=== PATIENT | male | born 1960 | race Hispanic/Latino ===

== ENCOUNTER 2023-09-21 15:39 | Inpatient (IN) | payer OTHER ==
--- OUTSIDE RECORDS SUMMARY | 2023-09-21 15:43 | XMS REPORT | Continuity of Care Document ---
:1960 Author Organization [facility] t Address [address] [facility] [address] [place] [address] Care Team Providers Name Role Phone PCP, PATIENT DOES NOT HAVE A Primary Care Physician Unavaila Hortencia Hoffman Attending Clinician HORTENCIA MAHONEY Attending Clinician Unavailable HORTENCIA MAHONEY Admitting Clinician Unavailable Problems This patient has no known problems. Allergies, Adverse Reactions, Alerts Allergy Allergy Status Severity Reaction(s) Onset Inactive Treating Comm ents Source Name Type Date Date Clinician NO KNOWN Drug Active Univers ALLERGIE Class ity of [facility] Social History Social Habit Start Date Stop Date Quantity Comments Source Gender identity [facility] Sexual orientation [facility] Sex Assigned At [birth year] [facility] 00:00:00 00:00:00 [facility] Branch Smoking Status Start Date Stop Date Source Tobacco smoking consumption [facility] Branch Medications Ordered Filled Start Stop Current Ordering Indication Dosage Frequency Signature Comments Components Source Medication Medication Date Date Medication? Clinician (SIG) Name Name iopamidol 2022- No [id number] 70mL 70 mL, Univers (ISOVUE 05-28 Intravenou ity o f 370-500 mL) 03:00: 03:00 s, ONCE, 1 [place] injection 00 :00 dose, On Medica l 70 mL [facility] Branch 05/27/23 at 2200, Routine lidocaine 2022- No 5mL 5 mL, Univer s (XYLOCAINE) 05-28 Urethral, it y of 2 % jelly 03:00: 02:07 ONCE, 1 Zehra salazar URO-JET 5 00 :00 dose, On Medica l mL Mon Branch 05/27/23 at 2200, Routine Vital Signs Vital Name Observation Time Observation Value Comments Source Systolic blood 2023-05-28 03:00:00 155 mm[Hg] Univer sity of [facility] Diastolic blood 2023-05-28 03:00:00 63 mm[Hg] [facility] Heart rate 2023-05-28 03:00:00 57 /min [facility] Respiratory rate 2023-05-28 03:00:00 16 /min [facility] Oxygen saturation in 2023-05-28 03:00:00 96 /min [facility] Arterial blood by [facility] Pulse oximetry [place] Body temperature 2023-05-28 00:01:00 36.72 [facility] Body height 2023-05-28 00:01:00 170.2 cm [facility] Body weight 2023-05-28 00:01:00 68.04 kg [facility] BMI 2023-05-28 00:01:00 23.49 kg/m2 [facility] Procedures Procedure Date / Time Performed Performing Clinician Sour e URINALYSIS 2023-05-28 00:50:00 Hortencia Mahoney [facility] COMP. METABOLIC PANEL 2023-05-28 00:47:00 Hortencia Mahoney [facility] ([id number]) [facility] CBC WITH DIFF 2023-05-28 00:47:00 Hortencia Mahoney [facility] NOTICE OF PRIVACY 2023-05-28 00:03:17 Doctor Unassigned, No [facility] PRACTICES Name [facility] CONSENT/REFUSAL FOR 2023-05-28 00:02:05 Doctor Unassigned, No [facility] DIAGNOSIS AND Name Medical Branch TREATMENT Encounters Start End Encounter Admission Attending Care Care Encounter Source Date/Time Date/Time Type Type Clinicians Facility Department ID 2023-05-27 2023-05-27 Emergency CALIXTO Mahoney [id number] [facility] 19:13:00 22:40:00 Hortencia CHACON [id number] i [facility] [id number] [facility] [id number] [place] [id number] Branch 2023-05-27 2023-05-27 Emergency X [facility] ERT [id number] Univers 19:13:00 22:40:00 HORTENCIA fly [facility] Results Test Description Test Time Test Comments Results Result Comments Source COMP. METABOLIC PANEL (09366) 2023-05-28 01:30:52 Test Item Value Reference Range Interpretation Comme nts NA (test code = 3792356495) 134 mmol/L 135-145 L K (test code = 8857574510) 3.1 mmol/L 3.5-5.0 L CL (test code = 2481999699) 99 mmol/L 98-108 CO2 TOTAL (test code = 1234327914) 23 mmol/L 23-31 AGAP (test code = 5001969160) 12 2-16 BUN (test code = 6776461008) 13 mg/dL 7-23 GLUCOSE (test code = 6729931628) 98 mg/dL 70-110 CREATININE (test code = 1.30 mg/dL 0.60-1.25 H 5666860153) TOTAL BILI (test code = 1.4 mg/dL 0.1-1.1 H 6629740893) CALCIUM (test code = 4413931597) 8.6 mg/dL 8.6-10.6 T PROTEIN (test code = 5489806450) 6.9 g/dL 6.3-8.2 ALBUMIN (test code = 0170780767) 4.0 g/dL 3.5-5.0 ALK PHOS (test code = 3457535106) 95 U/L 34-122 ALTv (test code = 1742-6) 17 U/L 5-50 AST(SGOT) (test code = 3916718199) 27 U/L 13-40 eGFR (test code = 1999786669) 55.8 mL/min/1.73m2 ANGY (test code = ANGY) Association of Glomerular Filtration Rate (GFR) and Staging of Kidney Disease* + +-------- + ------+| GFR (mL/min/1.73 m2) ?| With Kidney Damage ?| ?Without Kidney Damage+ +-- + +| ?>90 ?| ?Stage one ?| ? Normal ?+ +------- + -------+| ?60-89 ?| ?Stage two ?| ? Decreased GFR ? + +-------- + ------+| ?30-59 ?| ?Stage three ?| ? Stage three ? + +-------- + ------+| ?15-29 ?| ?Stage four ? | ? Stage four ?+ +------- + -------+| ?<15 (or dialysis) ? ?| ?Stage five ? | ? Stage five ?+ +------- + -------+ *Each stage assumes the associated GFR level has been in effect for at least three months. ?Stages 1 to 5, with or without kidney disease, indicate chronic kidney disease. Notes: Determination of stages one and two (with eGFR >59mL/min/1.73 m2) requires estimation of kidney damage for at least three months as defined by structural or functional abnormalities of the kidney, manifested by either:Pathological abnormalities or Markers of kidney damage (including abnormalities in the composition of the blood or urine or abnormalities in imaging tests). Lab Interpretation (test code = Abnormal 00634-0) [facility] WITH [id number] 01:15:11 Test Item Value Reference Range Interpretation Comments WBC (test code = 10.26 See_Comment [Automated 6070-2) message] The sy stem which generated this result transmitted reference range : 4.20 - 10.70 10*3/?L. The reference range was not used to interpret this result as normal/abnormal . RBC (test code = 4.55 See_Comment [Automated 724-8) message] The sy stem which generated this result transmitted reference range : 4.26 - 5.52 10*6/?L. The reference range was not used to interpret this result as normal/abnormal . HGB (test code = 14.4 g/dL 12.2-16.4 718-7) HCT (test code = 41.2 % 38.4-49.3 4544-3) MCV (test code = 90.5 fL 81.7-95.6 787-2) MCH (test code = 31.6 pg 26.1-32.7 785-6) MCHC (test code = 35.0 g/dL 31.2-35.0 786-4) RDW-SD (test code = 43.6 fL 38.5-51.6 82587-9) RDW-CV (test code = 13.2 % 12.1-15.4 788-0) PLT (test code = 239 See_Comment [Automated 777-3) message] The sy stem which generated this result transmitted reference range : 150 - 328 10*3/ ?L. The reference r isacc was not used to interpret this result as normal/abnormal . MPV (test code = 10.3 fL 9.8-13.0 37850-6) NRBC/100 WBC (test 0.0 See_Comment [Automat ed code = 2108202146) message] The system which generated this result transmitted reference range : 0.0 - 10.0 /100 WBCs. The refer ence range was not u sed to interpret th is result as normal/abnormal . NRBC x10^3 (test code See_Comment [Auto mated = 1005576858) message] The s ystem which generated this result transmitted reference range : 10*3/?L. The reference range was not used to interpret this result as normal/abnormal . GRAN MAT (NEUT) % 68.3 % (test code = 770-8) IMM GRAN % (test code 0.20 % = 7354874559) LYMPH % (test code = 20.6 % 736-9) MONO % (test code = 9.2 % 5905-5) EOS % (test code = 1.3 % 713-8) BASO % (test code = 0.4 % 706-2) GRAN MAT x10^3(ANC) 7.02 10*3/uL 1.99-6.95 H (test code = 6228013437) IMM GRAN x10^3 (test 0.00-0.06 code = 9523352685) LYMPH x10^3 (test code 2.11 10*3/uL 1.09-3.23 = 731-0) MONO x10^3 (test code 0.94 10*3/uL 0.36-1.02 = 742-7) EOS x10^3 (test code = 0.13 10*3/uL 0.06-0.53 711-2) BASO x10^3 (test code 0.04 10*3/uL 0.01-0.09 = 704-7) Lab Interpretation Abnormal (test code = 79663-4) [facility] Notes Date/Time Note Provider Source 2023-05-27 22:37:52 0366-85-42Z22:37:52Formatting of Leticia jaimes [facility] this note might be different from RN the original.Pt given printed and verbal discharge instructions regarding urinary retention, mahoney care, encouraged hydration.0 Prescriptions provided.Discussed ibuprofen and to take with food to avoid GI distress.Pt verbalized understanding of instructions, pt awake alert oriented, resp reg unlabored, skin w/d, color appropriate for race, moves all ext well,pt encouraged to follow up with pcp and urology.Advised to seek medical attention for new/prolonged/worsening of symptoms,Symptoms improved.No adverse reaction to meds given in ER noted upon discharge.PIV d'cd, dressing to site, catheter in tact.Awake, alert oriented, resp reg unlabored, skin w/d, pt leaving amb with steady gait, in no apparent distress. 12023-1Ircgbbzhh department LjyyPN4810-92-20U76:38:57[facility] department NoteTXT1.2.840.860405.1.13.104.2. 7.2.107863|[id number] for patient mxyq61502-9RhoyHL277300833Rhhibk M Herrera RN[address] EyoaFmimiwgspUbrievyplNOEB5166005 304HRSLVVDIXLIBELPXAXAOTD4330-04- 31T22:38:571.2.840.354322.1.72.3. 15|1.2.840.456408.1.13.104.2.7.2. [id number] 2023-05-27 22:35:28 8440-27-14H79:35:28Formatting of [facility] this note might be different from the original.Patient given leg bag, and instructed how to use. 85786-2Ididigcxk department TehrLA6695-39-90H91:36:01[facility] department NoteTXT1.2.840.464596.1.13.104.2. 7.2.602542|[id number] for patient vhfb95693-1EfweYEFFYWFYEN[address]TXTX[address]77 462GGBLHPYYKBKYGJDLCIDNOH0195-65- 31T22:36:011.2.840.386806.1.72.3. 15|1.2.840.749478.1.13.104.2.7.2. [id number] 2023-05-27 19:41:48 6441-02-37F96:41:48Formatting of Mery Griffin [facility] this note might be different from RN the original.Bladder scanner result: >999 mL. Mahoney placement in progress 12986-5Qwslwselb department CxqhDF2200-60-58Y84:44:02[facility] department NoteTXT1.2.840.012677.1.13.104.2. 7.2.690298|[id number] for patient kodd99607-4MhunKW138186142Csrkdl R Shehadeh RN[address] HfabBnlhezcxsDukuzquwtJIZV3353143 879LHXSYFJAVXWDWBGYSZHBZH8511-39- 31T19:44:021.2.840.637403.1.72.3. 15|1.2.840.333381.1.13.104.2.7.2. [id number] 2023-05-27 19:40:00 8590-80-23K09:40:00Formatting of [facility] this note might be different from the original.Bladder scan >999mL, provider at bedside 30382-6Lrsfkuhca department BqejJF3181-49-17W63:02:24[facility] department NoteTXT1.2.840.207667.1.13.104.2. 7.2.224725|[id number] for patient canf95752-3LmuxYEJPGHOTUK50 [address]TXTX[address] 420OZARGYHMBGENDRYONQYBRG5202-83- 31T20:02:241.2.840.147705.1.72.3. 15|1.2.840.716464.1.13.104.2.7.2. [id number] 2023-05-27 19:01:00 8529-83-12V33:01:00Formatting of [facility] this note might be different from the original.Patient's daughter states: "Since 3 days now he's been having difficulty going to the restroom. 1st day he couldn't pee at all, and he said he feels pain when urinating. He also have diarrhea today and had watery stools 20x." 93940-0Mbqsiocnx department Triage ivgbDJ1923-21-13X81:16:22[facility] department Triage noteTXT1.2.840.990525.1.13.104.2. 7.2.601113|[id number] for patient uzhg36022-2Fwgtksitm[address]TX[address] 830POKNEUUKFNRSKAVDNGMHGZ0697-83- 31T19:16:221.2.840.200501.1.72.3. 15|1.2.840.142411.1.13.104.2.7.2. [id number]
[2023-09-21 16:46] LABS: Absolute Lymphocytes (CBC) 0.6 K/uL (0.7-4.9); Hematocrit 41.2 % (39.6-49.0); Lymphocytes % 5.5 % (15.3-44.8); MCV 90.4 fL (80-100); MPV 8.3 fL (7.6-11.3); Platelets 212 thou/uL (152-406); RBC Red Blood Cell Count 4.55 M/uL (4.33-5.43)
--- NOTE | 2023-09-21 16:49 | RAD REPORT ---
EXAM DESCRIPTION: RAD - Chest Single View - 09/21/2023 4:40 pm CLINICAL HISTORY: MALAISE Chest pain. COMPARISON: No comparisons FINDINGS: Portable technique limits examination quality. The lungs are grossly clear. The heart is normal in size. No displaced fractures. IMPRESSION: No acute intrathoracic process suspected.
[2023-09-21] MEDS ORDERED: ACETAMINOPHEN 500 MG TAB ONE (16:56)
[2023-09-21] MEDS ORDERED: NA CHLORIDE 0.9% 1,000 ML ONE (16:56)
[2023-09-21 17:17] LABS: Urine Bacteria <20 /HPF (<20); Urine Bilirubin NEGATIVE (Negative); Urine Blood 2+ (Negative); Urine Clarity Extremely Turbid (Clear); Urine Color Orange (Yellow); Urine Crystals Unidentified Few /HPF (None Seen); Urine Glucose NEGATIVE (Negative); Urine Protein 1+ (Negative); Urine RBC >50 /HPF (None Seen); Urine Urobilinogen Normal (Normal); Urine WBC Clump Many /HPF (None Seen); Urine pH 5.5 (5.0-7.0)
[2023-09-21 17:21] LABS: Protime INR 1.2
[2023-09-21 17:23] LABS: Albumin 3.2 g/dL (3.4-5.0); Potassium 3.9 mEq/L (3.5-5.1); Protein, Total 7.2 g/dL (6.4-8.2)
[2023-09-21 17:39] LABS: SARS-COV-2 RT PCR NEGATIVE (NEGATIVE)
--- NOTE | 2023-09-21 18:12 | RAD REPORT ---
EXAM DESCRIPTION: CTAbdomen Pelvis W Contrast - 09/21/2023 6:06 pm CLINICAL HISTORY: Abdominal pain. ABD PAIN COMPARISON: No comparisons TECHNIQUE: Biphasic CT imaging of the abdomen and pelvis was performed with 100 ml non-ionic IV cont rast. All CT scans are performed using dose optimization technique as appropriate and may include automated exposure control or mA/KV adjustment according to patient size. FINDINGS: Mild linear atelectasis in both lung bases posteriorly. The liver, spleen, pancreas, adrenal glands are within normal limits. There is marked bladder distent ion and mild bilateral hydronephrosis and hydroureter. The prostate gland is enlarged. No bowel obstruction, free air, free fluid or abscess. The appendix is normal. No evidence of signi ficant lymphadenopathy. No suspicious bony findings. IMPRESSION: Prominent distention urinary bladder with mild bilateral hydronephrosis likely indicatin g bladder outlet obstruction, presumably related to significantly enlarged prostate gland.
[2023-09-21 18:20] LABS: Anisocytosis 1+; Blood Morphology Comment NOTED (NOT SEEN); Platelet Estimate ADEQ; Poikilocytosis 1+; White Blood Cell Scan OK (OK)
--- NOTE | 2023-09-21 19:07 | ER ---
Nurse's Notes [facility] Name: Salvador Yost Age: 63 yrs Sex: Male : 1960 Arrival Date: 09/21/2023 Time: 15:39 Bed 8 Private MD: Diagnosis: Urinary retention resolved, UTI, EMELY, hyponatremia Presentation: 09/21 15:51 Chief complaint: Patient's son or daughter states: chun removed on Saturday, Saturday ko1 burning when he peed, then black diarrhea, then fever and chills. Poor appetitie. Nausea also. Coronavirus screen: At this time, the client does not indicate any symptoms associated with coronavirus-19. Ebola Screen: No symptoms or risks identified at this time. Initial Sepsis Screen: Does the patient meet any 2 criteria? No. Patient's initial sepsis screen is negative. Does the patient have a suspected source of infection? No. Patient's initial sepsis screen is negative. Initial Sepsis Screen: Does the patient meet any 2 criteria? HR > 90 bpm. Does the patient have a suspected source of infection? No. Patient's initial sepsis screen is negative. Risk Assessment: Do you want to hurt yourself or someone else? Patient reports no desire to harm self or others. Onset of symptoms was September 21, 2023. 15:51 Method Of Arrival: Ambulatory ko1 15:51 Acuity: RAJ 2 ko1 Triage Assessment: 15:51 General: Appears ill, Behavior is calm, cooperative, appropriate for age. Pain: ko1 Complains of pain in left lower quadrant. Historical: - Allergies: 15:56 No Known Allergies; ko1 - Home Meds: 15:56 Unable to obtain [Active]; ko1 - PMHx: 15:56 BPH; ko1 - Immunization history:: Adult Immunizations up to date. - Social history:: Smoking status: Patient reports the use of cigarette tobacco products. Screenin:57 [facility] ED Fall Risk Assessment (Adult) History of falling in the last 3 months, kc6 including since admission No falls in past 3 months (0 pts) Confusion or Disorientation No (0 pts) Intoxicated or Sedated No (0 pts) Impaired Gait No (0 pts) Mobility Assist Device Used No (0 pt) Altered Elimination Yes (1 pt) Score/Fall Risk Level 0 - 2 = Low Risk. Abuse screen: Denies threats or abuse. Denies injuries from another. Nutritional screening: No deficits noted. Tuberculosis screening: No symptoms or risk factors identified. Assessment: 16:58 General: Appears in no apparent distress. comfortable, Behavior is calm, cooperative, kc6 appropriate for age. Pain: Complains of pain in suprapubic area. Neuro: Level of Consciousness is awake, alert, obeys commands, Oriented to person, place, time, situation, Appropriate for age. Cardiovascular: Capillary refill < 3 seconds. Respiratory: Airway is patent Trachea midline Respiratory effort is even, unlabored, Respiratory pattern is regular, symmetrical. GI: Abdomen is flat, non-distended, Bowel sounds present X 4 quads. Abd is soft X 4 quads Abdomen is tender to palpation in suprapubic area Reports bloody stool, Patient currently denies diarrhea, nausea, vomiting, Parent/caregiver reports the patient having anorexia. : Urine is blood tinged, Reports burning with urination, inability to void. EENT: No signs and/or symptoms were reported regarding the EENT system. Derm: No signs and/or symptoms reported regarding the dermatologic system. Skin is intact, is healthy with good turgor, Skin is pink, warm \T\ dry. Musculoskeletal: No signs and/or symptoms reported regarding the musculoskeletal system. Circulation, motion, and sensation intact. Capillary refill < 3 seconds, Range of motion: intact in all extremities. 17:58 Reassessment: Patient appears in no apparent distress at this time. No changes from kc6 previously documented assessment. Patient and/or family updated on plan of care and expected duration. Pain level reassessed. Patient is alert, oriented x 3, equal unlabored respirations, skin warm/dry/pink. 18:58 Reassessment: Patient appears in no apparent distress at this time. No changes from kc6 previously documented assessment. Patient and/or family updated on plan of care and expected duration. Pain level reassessed. Patient is alert, oriented x 3, equal unlabored respirations, skin warm/dry/pink. 19:15 Reassessment: Patient appears in no apparent distress at this time. Patient and/or jb4 family updated on plan of care and expected duration. Pain level reassessed. Patient is alert, oriented x 3, equal unlabored respirations, skin warm/dry/pink. 20:24 Reassessment: Patient appears in no apparent distress at this time. Patient and/or jb4 family updated on plan of care and expected duration. Pain level reassessed. Patient is alert, oriented x 3, equal unlabored respirations, skin warm/dry/pink. Vital Signs: 15:51 BP 156 / 82; Pulse 111; Resp 16; Temp 100.9; Pulse Ox 100% ; Weight 65.77 kg; ko1 16:59 BP 147 / 70; Pulse 97; Resp 14 S; Pulse Ox 100% on R/A; kc6 19:03 Resp 19 S; Temp 98.4(TE); Pulse Ox 100% on R/A; kc6 19:25 BP 163 / 89; Pulse 73; Resp 16; Pulse Ox 98% on R/A; km8 20:24 BP 122 / 68; Pulse 70; Resp 16; Pulse Ox 99% on R/A; jb4 20:30 BP 131 / 61; Pulse 73; Resp 16; Pulse Ox 100% on R/A; km8 ED Course: 15:44 Patient arrived in ED. mr 15:44 Danielle Haro MD is Attending Physician. sp3 15:51 Arm band placed on right wrist. Patient placed in an exam room, on a stretcher, on ko1 registered nurse cardiac, on pulse oximetry, Patient notified of wait time. 15:55 Triage completed. ko1 16:42 Chest Single View XRAY In Process Unspecified. EDMS 16:55 Veronica Willis RN is Primary Nurse. kc6 16:57 Patient has correct armband on for positive identification. Bed in low position. Call kc6 light in reach. Side rails up X2. Adult w/ patient. Client placed on continuous cardiac and pulse oximetry monitoring. NIBP monitoring applied. classroom monitor on. 16:57 Inserted saline lock: 20 gauge in right antecubital area, using aseptic technique. kc6 Blood collected. Patient maintains SpO2 saturation greater than 95% on room air. 17:10 Inserted saline lock: 20 gauge in left antecubital area, using aseptic technique. Blood kc6 collected. 18:08 CT Abd/Pelvis - IV Contrast Only In Process Unspecified. EDMS 18:30 Coud inserted, using sterile technique, 18 Fr. Returned bloody urine. To gravity kc6 drainage. Clamped. Patient tolerated well. 19:00 Report given to RAFAELA Bethea \T\ RAFAELA Oliver. kc6 19:07 Prem Norman MD is Hospitalizing Provider. sp3 20:51 Provided Education on: admission process. km8 20:51 Patient admitted, IV remains in place. km8 20:51 No provider procedures requiring assistance completed. km8 Administered Medications: 16:55 Drug: Acetaminophen PO 1000 mg PO once Route: PO; kc6 19:04 Follow up: Response: No adverse reaction; Temperature is decreased kc6 16:55 Drug: NS 0.9% IV 1000 ml IV at 1 bolus Per protocol; 1000 mL bolus Route: IV; Rate: 1 kc6 bolus; Site: right antecubital; 19:04 Follow up: Response: No adverse reaction; IV Status: Completed infusion; IV Intake: kc6 1000ml 19:44 Drug: levofloxacin IVPB 500 mg 100 ml IVPB once over 60 mins Volume: 100 ml; Route: jb4 IVPB; Infused Over: 60 mins; Site: right antecubital; Medication: 20:51 VIS not applicable for this client. km8 Intake: 19:04 IV: 1000ml; Total: 1000ml. kc6 Output: 20:51 Urine: 500ml (Chun); Total: 500ml. km8 Outcome: 19:07 Decision to Hospitalize by Provider. sp3 20:51 Admitted to Med/surg accompanied by tech, via wheelchair, room 229, with chart, Report jb4 called to RAFAELA Pan 20:51 Condition: stable 20:51 Discharge instructions given to patient, family, Instructed on the need for admit, Demonstrated understanding of instructions, 20:52 Patient left the ED. jb4 Signatures: Dispatcher [employer] EDTN Silvia Sneed, Reg Reg mr KilgoresonSurya, RN RN jb4 Danielle Haro MD MD sp3 Veronica Willis RN RN kc6 Monique Narayan RN RN koNeema Meeks RN RN km8
--- NOTE | 2023-09-21 19:08 | EDPHYS ---
Physician Documentation [facility] Name: Salvador Yost Age: 63 yrs Sex: Male : 1960 Arrival Date: 09/21/2023 Time: 15:39 Bed 8 Private MD: ED Physician Danielle Haro HPI: 09/21 16:57 This 63 yrs old Male presents to ER via Ambulatory with complaints of Urinary sp3 Problem, Fever, Black/Tarry Stools. 16:57 63-year-old male with history of BPH with indwelling Macedo since May recently sp3 discharged few days ago in [place] by his urologist presents to the ED with dysuria, urinary frequency, mild fever. Also incidentally patient has had 1 episode of black stools and is having mild lower abdominal diffuse pain. Patient denies vomiting, nausea, bleeding anywhere else, URI symptoms, cough, shortness of breath, chest pain, back pain, rash, known sick contacts, travel history, or any other signs or symptoms on ROS at this time. Patient is able to void without difficulty. Patient denies any OTC medications including Pepto-Bismol. He did take Azo as recommended by his urologist.. Historical: - Allergies: 15:56 No Known Allergies; ko1 - Home Meds: 15:56 Unable to obtain [Active]; ko1 - PMHx: 15:56 BPH; ko1 - Immunization history:: Adult Immunizations up to date. - Social history:: Smoking status: Patient reports the use of cigarette tobacco products. ROS: 16:59 Eyes: Negative for injury, pain, redness, and discharge, ENT: Negative for injury, sp3 pain, and discharge, Neck: Negative for injury, pain, and swelling, Cardiovascular: Negative for chest pain, palpitations, and edema, Respiratory: Negative for shortness of breath, cough, wheezing, and pleuritic chest pain, Back: Negative for injury and pain, MS/Extremity: Negative for injury and deformity, Skin: Negative for injury, rash, and discoloration, Neuro: Negative for headache, weakness, numbness, tingling, and seizure, Psych: Negative for depression, anxiety, suicide ideation, homicidal ideation, and hallucinations, Allergy/Immunology: Negative for hives, rash, and allergies, Endocrine: Negative for neck swelling, polydipsia, polyuria, polyphagia, and marked weight changes, Hematologic/Lymphatic: Negative for swollen nodes, abnormal bleeding, and unusual bruising, 16:59 All other systems are negative, Exam: 17:04 Constitutional: This is a well developed, well nourished patient who is awake, alert, sp3 and in no acute distress. Head/Face: Normocephalic, atraumatic. Eyes: Pupils equal round and reactive to light, extra-ocular motions intact. Lids and lashes normal. Conjunctiva and sclera are non-icteric and not injected. Cornea within normal limits. Periorbital areas with no swelling, redness, or edema. ENT: Nares patent. No nasal discharge, no septal abnormalities noted. External auditory canals are clear. Oropharynx with no redness, swelling, or masses, exudates, or evidence of obstruction, uvula midline. Mucous membranes moist. Neck: Trachea midline, no thyromegaly or masses palpated, and no cervical lymphadenopathy. Supple, full range of motion without nuchal rigidity, or vertebral point tenderness. No Meningismus. Chest/axilla: Normal chest wall appearance and motion. Nontender with no deformity. No lesions are appreciated. Cardiovascular: Regular rate and rhythm with a normal S1 and S2. No gallops, murmurs, or rubs. Normal PMI, no JVD. No pulse deficits. Respiratory: Lungs have equal breath sounds bilaterally, clear to auscultation and percussion. No rales, rhonchi or wheezes noted. No increased work of breathing, no retractions or nasal flaring. Back: No spinal tenderness. No costovertebral tenderness. Full range of motion. Skin: Warm, dry with normal turgor. Normal color with no rashes, no lesions, and no evidence of cellulitis. MS/ Extremity: Pulses equal, no cyanosis. Neurovascular intact. Full, normal range of motion. Neuro: Awake and alert, GCS 15, oriented to person, place, time, and situation. Cranial nerves II-XII grossly intact. Motor strength 5/5 in all extremities. Sensory grossly intact. Cerebellar exam normal. Normal gait. Psych: Awake, alert, with orientation to person, place and time. Behavior, mood, and affect are within normal limits. 17:04 Abdomen/GI: Mild tenderness to bilateral lower quadrants without rebound or guarding. Nonsurgical abdomen noted. No epigastric pain., 17:19 ECG was reviewed by the Attending Physician. EKG demonstrates sinus tachycardia at 100 sp3 bpm with normal intervals, normal QRS, normal axis, normal ST/T-segment's without evidence of acute ischemia. Vital Signs: 15:51 BP 156 / 82; Pulse 111; Resp 16; Temp 100.9; Pulse Ox 100% ; Weight 65.77 kg; ko1 16:59 BP 147 / 70; Pulse 97; Resp 14 S; Pulse Ox 100% on R/A; kc6 19:03 Resp 19 S; Temp 98.4(TE); Pulse Ox 100% on R/A; kc6 19:25 BP 163 / 89; Pulse 73; Resp 16; Pulse Ox 98% on R/A; km8 20:24 BP 122 / 68; Pulse 70; Resp 16; Pulse Ox 99% on R/A; jb4 20:30 BP 131 / 61; Pulse 73; Resp 16; Pulse Ox 100% on R/A; km8 MDM: 15:58 Patient medically screened. sp3 17:07 Data reviewed: vital signs, nurses notes, lab test result(s), EKG, radiologic studies. sp3 ED course: 63-year-old male with likely urinary tract infection/pyelonephritis spectrum. Dark stools x1 reported however abdomen is not tender in patient does not have a history of bleeding. Laboratory values pending as well as CT scan of the abdomen pelvis, flu COVID swabs and antipyretics and IV fluids. Been ordered. Disposition pending work-up and patient course with possible admission versus transfer versus discharge depending on results and course.. 18:51 ED course: All data reviewed, Macedo was placed after distended bladder noted on CT sp3 scan. Bilateral hydronephrosis also noted. Sodium low at 126 and mild EMELY also noted. 2 L output on Macedo catheter after placement. At this time we will admit for supportive care, resolution of EMELY and electrolyte correction. Urinary obstruction secondary to known enlarged prostate as patient just had Macedo removed for extended placement since the summer. Patient should be able to be discharged from the floor with Macedo catheter follow-up with his urologist in [place].. 09/21 16:01 Order name: Blood Culture Adult (2) sp3 09/21 16:01 Order name: CBC with Diff; Complete Time: 18:49 sp3 09/21 16:01 Order name: CMP; Complete Time: 18:15 [facility] 09/21 16:01 Order name: Lactate w/ 2H reflex if indic.; Complete Time: 18:15 [facility] 09/21 16:01 Order name: Protime (+inr); Complete Time: 18:15 [facility] 09/21 16:01 Order name: Ptt, Activated; Complete Time: 18:15 [facility] 09/21 16:01 Order name: Urinalysis w/ reflexes; Complete Time: 18:15 [facility] 09/21 16:01 Order name: COVID-19/FLU A+B/RSV; Complete Time: 18:15 [facility] 09/21 17:24 Order name: Urine Culture [facility] 09/21 18:20 Order name: CBC Smear Scan; Complete Time: 18:49 [facility] 09/21 16:01 Order name: Chest Single View XRAY; Complete Time: 16:54 [facility] 09/21 16:54 Order name: CT Abd/Pelvis - IV Contrast Only; Complete Time: 18:15 [facility] 09/21 16:01 Order name: EKG; Complete Time: 16:02 [facility] 09/21 16:01 Order name: Cardiac monitoring; Complete Time: 16:55 [facility] 09/21 16:01 Order name: EKG - Nurse/Tech; Complete Time: 16:55 [facility] 09/21 16:01 Order name: IV Saline Lock - Large Bore; Complete Time: 16: [facility] 09/21 16:01 Order name: Labs collected and sent; Complete Time: 16: [facility] 09/21 16:01 Order name: O2 Per Protocol; Complete Time: 16: [facility] 09/21 16:01 Order name: O2 Sat Monitoring; Complete Time: 16: [facility] 09/21 16:01 Order name: Vital Signs; Complete Time: 16: [facility] 09/21 18:16 Order name: Macedo; Complete Time: 18:50 snw Administered Medications: 16:55 Drug: Acetaminophen PO 1000 mg PO once Route: PO; kc6 19:04 Follow up: Response: No adverse reaction; Temperature is decreased kc6 16:55 Drug: NS 0.9% IV 1000 ml IV at 1 bolus Per protocol; 1000 mL bolus Route: IV; Rate: 1 kc6 bolus; Site: right antecubital; 19:04 Follow up: Response: No adverse reaction; IV Status: Completed infusion; IV Intake: kc6 1000ml 19:44 Drug: levofloxacin IVPB 500 mg 100 ml IVPB once over 60 mins Volume: 100 ml; Route: jb4 IVPB; Infused Over: 60 mins; Site: right antecubital; Disposition Summary: 09/21/23 19:07 Hospitalization Ordered Notes: Hospitalization Status: Observation sp3 Provider: Prem Norman sp3 Location: Telemetry/[facility] (observation) sp3 Condition: Stable sp3 Problem: an acute exacerbation sp3 Symptoms: are unchanged sp3 Bed/Room Type: Standard sp3 Room Assignment: 229(09/21/23 19:56) ds4 Diagnosis - Urinary retention resolved, UTI, EMELY, hyponatremia sp3 Forms: - Medication Reconciliation Form sp3 - SBAR form sp3 - Leadership Thank You Letter sp3 Signatures: Dispatcher [employer] EDMS Carlene Schulz, JAMI-C [employer] Wilfrid Valle ds4 Surya Levi RN RN jb4 Danielle Haro MD MD sp3 Veronica Willis RN RN kc6 Monique Narayan RN RN ko1 Corrections: (The following items were deleted from the chart) 19:56 19:07 sp3 ds4
[2023-09-21] MEDS ORDERED: Levofloxacin500mg IV 500 MG/100 ML BAG IV ONE (19:37)
--- NOTE | 2023-09-21 19:47 | P.HP ---
Certification for Inpatient Patient admitted to: Inpatient With expected LOS: <2 Midnights Patient will require the following post-hospital care: None Practitioner: I am a practitioner with admitting privileges, knowledge of patient current condition, hospital course, and medical plan of care. Services: Services provided to patient in accordance with Admission requirements found in Title 42 Section 412.3 of the Code of Federal Regulations Patient History Date of Service: 09/21/23 Reason for admission: fever, unable to urinate History of Present Illness: 63-year-old male with a history of BPH presents to the emergency room with unable to urinate. Family is primary historian reports patient has had an indwelling catheter since May and has seen urologist weekly. Family reports on Saturday urologist patient sees Dr. Mark Starks urology-Discontinued Macedo catheter On Saturday. Since catheter removal, the patient reported unable to to empty bladder, over the next day reported fever, nausea, vomiting. Nausea vomiting worse with p.o. intake. Symptoms progressively worsened. Patient reported black tarry stools 3-4 a day x3 days. No reported history of recent alcohol use, gastric ulcers, reported ibuprofen was given 2 days ago. No reported use of anticoagulation. Remote history of alcohol use greater than 30 years. No history of chronic liver disease. No reported shortness of breath, chest pain, abdominal pain, flank pain, edema, dizziness. Plan to admit for bilateral hydronephrosis secondary to bladder outlet obstruction, acute kidney injury, hyponatremia, acute cystitis. Laboratory evaluation sodium 126, acute kidney injury BUN 22 creatinine 1.75, estimated GFR 43 lactic acid normal at 1.6 hypocalcemia 8.2 hyperal albumin 3.2, UA leukoesterase greater than 500 WBCs greater than 52+ hematuria, SARS, influenza, RSV, negative, CT of the abdomen pelvis IMPRESSION: Prominent distention urinary bladder with mild bilateral hydronephrosis likely indicating bladder outlet obstruction, presumably related to significantly enlarged prostate gland., Chest x-ray no acute intrathoracic process. Heart normal size.WBCs are normal at 10.40, early left shift 88.4, H&H 14.0, 41.2, - Past Medical/Surgical History Diabetic: No -: BPH -: urinary retention Past Surgical History: Patient denies surgical history Psychosocial/ Personal History: speaking, lives with spouse, retired - Social History Smoking Status: Never smoker Alcohol use: No CD- Drugs: No Caffeine use: Yes Place of Residence: Home Review of Systems 10-point ROS is otherwise unremarkable Physical Examination - Physical Exam General: Alert, In no apparent distress, Oriented x3 HEENT: Atraumatic, Normocephalic Neck: Supple, 2+ carotid pulse no bruit Respiratory: Clear to auscultation bilaterally, Normal air movement Cardiovascular: No edema, Normal pulses, Regular rate/rhythm Capillary refill: <2 Seconds Gastrointestinal: Normal bowel sounds, Soft and benign Musculoskeletal: No clubbing, No swelling Integumentary: No rashes, No breakdown Neurological: Normal speech, Normal strength at 5/5 x4 extr Urinary: Macedo catheter (Macedo catheter placed in the ER, sediment in Macedo) - Studies Laboratory Data (last 24 hrs) 09/21/23 09/21/23 09/21/23 16:25 16:25 16:25 WBC 10.40 Hgb 14.0 Hct 41.2 Plt Count 212 PT 13.2 H INR 1.20 APTT 33.0 Sodium 126 L Potassium 3.9 BUN 22 H Creatinine 1.75 H Glucose 118 H Total Bilirubin 1.0 AST 16 ALT 25 Alkaline Phosphatase 114 Assessment and Plan - Plan Assessment plan bilateral hydronephrosis secondary to bladder outlet obstruction Macedo to bedside drainage, I&O UA leukoesterase greater than 500 WBCs greater than 52+ hematuria, CT of the abdomen pelvis IMPRESSION: Prominent distention urinary bladder with mild bilateral hydronephrosis likely indicating bladder outlet obstruction, presumably related to significantly enlarged prostate gland., Chest x-ray no acute intrathoracic process. Heart normal size. SARS, influenza, RSV, negative, Reported black tarry stools Trend H&H, hemoglobin 14 WBCs are normal at 10.40, early left shift 88.4, H&H 14.0, 41.2, Avoid NSAIDs, acute kidney injury likely secondary to bladder outlet obstruction IV fluids, trend kidney function acute kidney injury BUN 22 creatinine 1.75, estimated GFR 43 acute cystitis IV Levaquin every 24, trend WBCs hyponatremia IV fluids, trend sodium, trend electrolytes Laboratory evaluation sodium 126 Hypoalbuminemia albumin 3.2, Hypocalcemia Trend calcium replace. hypocalcemia 8.2 Regular diet Full code DVT SCDs Discharge Plan: Home Plan to discharge in: 48 Hours - Advance Directives Does patient have a Living Will: No Does patient have a Durable POA for Healthcare: No - Code Status/Comfort Care Code Status: Full Code Physician Review: Patient Assessed, Agree with Above Assessment and Plan Critical Care: No Time Spent Managing Pts Care (In Minutes): 50
[2023-09-21] MEDS ORDERED: ONDANSETRON 4 MG/2 ML VIAL IV PRN (20:51)
[2023-09-21] MEDS ORDERED: NA CHLORIDE 0.9% 1,000 ML IV SCH (20:51)
[2023-09-21] MEDS ORDERED: SODIUM CHLORIDE 0.9% 10ML INJ IV PRN (20:51)
[2023-09-21 21:15] VITALS: BMI 22.8
[2023-09-21] MEDS: PANTOPRAZOLE 40 MG INJ IVP SCH (21:43)
[2023-09-21 22:13] LABS: Hematocrit 37.8 % (39.6-49.0)
[2023-09-22 01:16] LABS: Hematocrit 35.3 % (39.6-49.0)
[2023-09-22] MEDS: ACETAMINOPHEN 500 MG TAB PO PRN ×3 (01:34→20:27)
[2023-09-22] MEDS: CEFEPIME 2 GM in NA CHLORIDE 0.9% 100 ML IV SCH (01:41)
--- NOTE | 2023-09-22 07:06 | P.PN ---
Date of Service: 09/22/23 Subjective: Feeling better today fever overnight 103.2 no BM since last saturday, reports has BM every ~3 days at baseline discomfort from chun that patient attributes to d/t larger size gauge than what patient used to ROS: 10 point ROS as noted above, otherwise negative Physical Exam: GEN: Alert, oriented, NAD HEENT: Normal conjunctiva, sclera anicteric CV: Regular rate and rhythm, no edema Pulm: Nonlabored respirations on room air, clear bilaterally ABD: Soft, nontender, nondistended Integumentary: No rashes, no lesions Neuro: Normal speech, normal affect Chun in place, no gross hematuria vitals reviewed Problem List: Bilateral hydronephrosis secondary to bladder outlet obstruction BPH with chronic obstruction, failed voiding trial x2 (Chun since May 2023) Acute Cystitis EMELY secondary to bladder outlet obstruction Reported Dark brown stool Hyponatremia Hypoalbuminemia Hypocalcemia Constipation Bilateral hydronephrosis secondary to bladder outlet obstruction BPH with chronic obstruction, failed voiding trial x2 (Chun since May 2023) Acute Cystitis Patient with indwelling catheter reportedly since may. Follows up with urology - Dr. Mark Starks weekly. reports attempted voiding trial x2 (~1 month apart). Most recent was Sunday 09/16 initially felt ok, while taking AZO, then got worse once stopped AZO Chun placed in ED 09/[address] abdomen (09/21): Prominent distention urinary bladder with mild bilateral hydronephrosis likely indicating bladder outlet obstruction Blood cx (09/21): Pending Urine cx (09/21): pending Patient was admitted on cefepime and levaquin (09/22) recent hospitalizations, prior enterococcus will review, possibly dc cefepime PRN analgesics/antiemetics continue IV fluids EMELY secondary to bladder outlet obstruction Hyponatremia Hypoalbuminemia Hypocalcemia Nephrology following CR 1.75, Na of 126 on admission Continue IV fluids Continue to monitor renal function trend electrolytes, replete as needed Reported Dark brown stool constipation 3-4 episodes of dark stools a day, for ~3days per patient - states only smears, not much monitor H&H. Transfuse for hgb < 7. hgb 14 -> 13 -> 12.6 (09/22) possibility of a stercoral ulcer - ~1 week since had BM, and bladder significantly distended not allowing for stool to pass VTE: SCD Code: Full Dispo: Home, 2+ days Pending further improvement, cx results
[2023-09-22 07:31] LABS: Hematocrit 37.7 % (39.6-49.0); Lymphocytes % 14.2 % (15.3-44.8); MCV 90.8 fL (80-100); MPV 8.1 fL (7.6-11.3); Platelets 193 thou/uL (152-406); RBC Red Blood Cell Count 4.15 M/uL (4.33-5.43)
[2023-09-22 07:42] LABS: Magnesium 2.4 mg/dL (1.6-2.4); Potassium 3.5 mEq/L (3.5-5.1)
[2023-09-22] MEDS: PANTOPRAZOLE 40 MG INJ IVP SCH ×2 (08:42→20:29)
[2023-09-22] MEDS ORDERED: POTASSIUM CL SA 10 MEQ TAB PO ONE ×2 (09:00→18:33)
[2023-09-22] MEDS ORDERED: D5W 1,000 ML with POTASSIUM CL 20 MEQ IV SCH ×2 (09:00)
[2023-09-22 11:52] LABS: Albumin 2.3 g/dL (3.4-5.0); Magnesium 2.2 mg/dL (1.6-2.4); Phosphorus 2.3 mg/dL (2.5-4.9); Potassium 3.9 mEq/L (3.5-5.1)
--- NOTE | 2023-09-22 15:38 | P.CNS ---
Date of Consult: 09/22/23 Reason for Consult: renal failure Requesting Physician: Prem Norman Chief Complaint: fever, unable to urinate History of Present Illness: 63M w/ PMHx of BPH who presents with inability to urinate. He reports he had indwelling catheter placed in May 2023 and was discontinued only 4 days ago. He noted progressive decrease in his urine output since removal of the Chun. He has EMELY w/ serum creatinine 1.[address] scan of the abdomen showed bilateral hydronephrosis and prominent distention of the urinary bladder. He had a Chun catheter placed. He also has hyponatremia with serum sodium 126 on admission. He received normal saline IV fluid. he has pyuria and hematuria. He is receiving antibiotics for UTI. Allergies No Known Allergies Allergy (Verified 09/21/23 21:25) Home Medications: Finasteride [Proscar*] 5 mg PO DAILY 09/21/23 Tamsulosin [Flomax*] 0.4 mg PO DAILY 09/21/23 - Past Medical/Surgical History Diabetic: No -: BPH -: urinary retention Psychosocial/ Personal History: speaking, lives with spouse, retired - Social History Alcohol use: No CD- Drugs: No Caffeine use: Yes Place of Residence: Home Review of Systems General: Unremarkable Eyes: Unremarkable ENT: Unremarkable Respiratory: Unremarkable Cardiovascular: Unremarkable Gastrointestinal: Unremarkable Genitourinary: Other (decreased urine output) Musculoskeletal: Unremarkable Integumentary: Unremarkable Physical Examination Temp Pulse Resp BP Pulse Ox 98.7 F 80 14 114/58 L 95 09/22/23 12:00 09/22/23 12:00 09/22/23 12:00 09/22/23 12:00 09/22/23 12:00 General: In no apparent distress HEENT: Atraumatic, Normocephalic Neck: Supple, JVD not distended Respiratory: Other (symmetric chest expansion) Cardiovascular: No rubs, No murmurs Gastrointestinal: Soft and benign, Non-distended Musculoskeletal: No clubbing Integumentary: No warmth Neurological: Normal speech, Normal tone Lymphatics: No axilla or inguinal lymphadenopathy Urinary: Chun catheter External genitalia: Deferred Rectal: Deferred Laboratory Data (last 24 hrs) 09/21/23 09/21/23 09/21/23 16:25 16:25 16:25 WBC 10.40 Hgb 14.0 Hct 41.2 Plt Count 212 PT 13.2 H INR 1.20 APTT 33.0 Sodium 126 L Potassium 3.9 BUN 22 H Creatinine 1.75 H Glucose 118 H Total Bilirubin 1.0 AST 16 ALT 25 Alkaline Phosphatase 114 Conclusions/Impression: # EMELY 2/2 obstructive uropathy from BPH SCr 1.8 on adm, improved to 1.4 today Urinalysis showed proteinuria, hematuria, pyuria Urine chemistry non-prerenal Cont chun IVF via LR gtt 75 cc/hr [place] po fluid intake Monitor for postobstructive diuresis # UTI Empric abx F/u BCx, UCx # BPH Flomax + Proscar qHS Pt requesting to be seen by Urology in [facility] dc. Will refer to [facility] Dr. Swanson. Cont chun for now. Pt agreeable to train how to do CIC. Plan to switch chun to scheduled CIC qam + qHS when EMELY much improved. # Hyponatremia 2/2 renal failure Improved LR gtt as above # Hypocalcemia Mild, corrected serum Ca 8.6, monitor # Hypophosphatemia Phos repletion prn
[2023-09-22 18:02] LABS: Albumin 2.4 g/dL (3.4-5.0); Phosphorus 2.1 mg/dL (2.5-4.9); Potassium 3.5 mEq/L (3.5-5.1)
[2023-09-22 18:17] LABS: UR PROTEIN 45.6 mg/dL (<11.9); Urine Protein/Creatinine Ratio 0.72 ratio (<0.15)
[2023-09-22] MEDS: Ringers Lactate 1,000 ML IV SCH (20:28)
[2023-09-22] MEDS: TAMSULOSIN 0.4 MG SR CAP PO SCH (20:28)
[2023-09-22] MEDS: Levofloxacin500mg IV 500 MG/100 ML BAG IV SCH (20:29)
[2023-09-23] MEDS: CEFEPIME 2 GM in NA CHLORIDE 0.9% 100 ML IV SCH (01:33)
[2023-09-23 06:19] LABS: Absolute Lymphocytes (CBC) 1.1 K/uL (0.7-4.9); Hematocrit 35.2 % (39.6-49.0); Lymphocytes % 18.6 % (15.3-44.8); MCV 90.6 fL (80-100); MPV 8.6 fL (7.6-11.3); Platelets 193 thou/uL (152-406); RBC Red Blood Cell Count 3.88 M/uL (4.33-5.43)
[2023-09-23 06:32] LABS: Albumin 2.1 g/dL (3.4-5.0); Magnesium 1.8 mg/dL (1.6-2.4); Phosphorus 2.2 mg/dL (2.5-4.9); Potassium 3.5 mEq/L (3.5-5.1)
--- NOTE | 2023-09-23 07:33 | P.PN ---
Date of Service: 09/23/23 Subjective: Feeling better today no diarrhea, no black / dark stool. reports 2 BM with brown stool no acute events overnight afebrile ROS: 10 point ROS as noted above, otherwise negative Physical Exam: GEN: Alert, oriented, NAD HEENT: Normal conjunctiva, sclera anicteric CV: Regular rate and rhythm, no edema Pulm: Nonlabored respirations on room air, clear bilaterally ABD: Soft, nontender, nondistended Neuro: Normal speech, normal affect Macedo in place, no gross hematuria vitals reviewed Problem List: Bilateral hydronephrosis secondary to bladder outlet obstruction BPH with chronic obstruction, failed voiding trial x2 (Macedo since May 2023) Acute Cystitis GNR bacteremia EMELY secondary to bladder outlet obstruction Reported Dark brown stool Hyponatremia Hypoalbuminemia Hypocalcemia Constipation Bilateral hydronephrosis secondary to bladder outlet obstruction BPH with chronic obstruction, failed voiding trial x2 (Macedo since May 2023) Acute Cystitis GNR bacteremia Patient with indwelling catheter reportedly since may. Follows up with urology - Dr. Mark Starks weekly. reports attempted voiding trial x2 (~1 month apart). Most recent was Sunday 09/16 initially felt ok, while taking AZO, then got worse once stopped AZO Macedo placed in ED 09/[address] abdomen (09/21): Prominent distention urinary bladder with mild bilateral hydronephrosis likely indicating bladder outlet obstruction Blood cx (09/21): GNR Urine cx (09/21): GNR Patient was admitted on cefepime and levaquin (09/22) recent hospitalizations, prior enterococcus dc cefepime 09/23 IV/PICC vs PO abx pending cx results ID consulted follow cultures PRN analgesics/antiemetics restart home finasteride 09/23 EMELY secondary to bladder outlet obstruction Hyponatremia, improving Hypoalbuminemia Hypocalcemia Nephrology following CR 1.75, Na of 126 on admission improving IVF Continue to monitor renal function trend electrolytes, replete as needed Cr, Na improving Reported Dark brown stool constipation 3-4 episodes of dark stools a day, for ~3days per patient - states only smears, not much monitor H&H. Transfuse for hgb < 7. possibility of a stercoral ulcer - ~1 week since had BM, and bladder significantly distended not allowing for stool to pass reports 2 brown BM 09/23. Denies black stool. No obvious bleeds seen. VTE: SCD Code: Full Dispo: Home, 1-2 days Pending further improvement, cx results
[2023-09-23] MEDS: FINASTERIDE 5 MG TAB PO SCH (09:12)
[2023-09-23] MEDS: PANTOPRAZOLE 40 MG INJ IVP SCH ×2 (09:12→20:41)
[2023-09-23] MEDS: TAMSULOSIN 0.4 MG SR CAP PO SCH (09:12)
[2023-09-23] MEDS: Ringers Lactate 1,000 ML IV SCH ×2 (09:12→21:40)
--- NOTE | 2023-09-23 09:20 | P.CNS ---
Date of Consult: 09/23/23 Reason for Consult: Bacteremia Chief Complaint: fever, unable to urinate History of Present Illness: Patient is a 63-year-old male with a past medical history of BPH who had an indwelling Macedo catheter since May which was recently removed by his urologist on 09/17. Since then patient has reportedly been unable to empty his bladder and developed a fever nausea and vomiting which prompted him to present to the ED. CT abdomen pelvis showing bilateral hydronephrosis this likely indicating bladder outlet obstruction related to enlarged prostate. Patient was admitted for complicated urinary tract infection. Infectious disease consulted. Allergies No Known Allergies Allergy (Verified 09/21/23 21:25) Home medications list reviewed: Yes Home Medications: Finasteride [Proscar*] 5 mg PO DAILY 09/21/23 Tamsulosin [Flomax*] 0.4 mg PO DAILY 09/21/23 - Past Medical/Surgical History Diabetic: No -: BPH -: urinary retention Psychosocial/ Personal History: speaking, lives with spouse, retired - Social History Alcohol use: No CD- Drugs: No Caffeine use: Yes Place of Residence: Home Review of Systems 10-point ROS is otherwise unremarkable Gastrointestinal: Abdominal Pain (lower abdominal pain) Physical Examination Temp Pulse Resp BP Pulse Ox 98.5 F 67 16 136/64 94 09/23/23 08:00 09/23/23 08:00 09/23/23 08:00 09/23/23 08:00 09/23/23 08:00 General: Alert, In no apparent distress, Oriented x3 HEENT: Atraumatic, Normocephalic, Other (missing teeth) Neck: Supple Respiratory: Clear to auscultation bilaterally, Normal air movement Cardiovascular: No edema, Regular rate/rhythm Gastrointestinal: Normal bowel sounds, Tenderness (lower abdomen) Integumentary: No rashes Urinary: Macedo catheter Laboratory data -Reviewed Microbiology data -Reviewed Imagings Data: -Reviewed Conclusions/Impression: Problem list Gram-negative bacteremia secondary to complicated urinary tract infection Bilateral hydronephrosis Benign prostatic hypertrophy Acute kidney injury Gram-negative bacteremia secondary to complicated urinary tract infection - Indwelling Macedo catheter since May. -Blood cultures 09/21: Gram-negative rods -Urine culture 09/21: Gram-negative rods -CT abdomen pelvis w contrast 09/21: " Prominent distention urinary bladder with mild bilateral hydronephrosis likely indicating bladder outlet obstruction, presumably related to significantly enlarged prostate gland." - Currently on Cefepime and Levaquin IV (stared 09/22) - 24 hour tmax = 101.3 F Recommendations - Continue with Levofloxacin for now. Discontinue Cefepime. Awaiting final culture/sensitivity results. Will adjust antibiotics as appropriate. - GNR bacteremia/complicated UTI: Continue antibiotic therapy for 10-14 days. - Monitor WBC and fever trends - Renally dose medications Case discussed with Kyle Cifuentes
--- NOTE | 2023-09-23 16:53 | EKG ---
Test Date: 2023-09-21 Test Time: 16:48:59 Broadcast Systems Engineer: ESTEVAN MEASUREMENT RESULTS: Intervals: Rate: 100 DE: 140 QRSD: 86 QT: 322 QTc: 415 [place]: P: 77 DE: 140 QRS: 92 T: 59 INTERPRETIVE STATEMENTS: Normal sinus rhythm Normal ECG No previous ECG available for comparison Electronically Signed On 09-23-23 16:51:49 CONCRETE VIBRATOR OPERATOR by Cheng Estrada
[2023-09-23] MEDS: Levofloxacin500mg IV 500 MG/100 ML BAG IV SCH (20:41)
[2023-09-23 21:57] VITALS: O2SAT 95
[2023-09-24] MEDS: Ringers Lactate 1,000 ML IV SCH ×2 (00:05→12:59)
--- NOTE | 2023-09-24 00:13 | PN ---
Date of Progress Note: 09/23/2023 Chief Complaint: Acute kidney injury, urinary retention, bladder outlet obstruction. Subjective: The patient came to the hospital because of fever and he was unable to urinate. The josie dai is a 63-year-old man with history of BPH who presented to the hospital because of inability to u rinate. He reports he had indwelling catheter placed in May 2023 and it was discontinued only 4 d ays prior to admission. The patient noted progressive decrease in his urine output since Macedo mary ter was removed. Serum creatinine level was up to 1.8 on admission. He was found to have acute kidn ey injury with elevated serum creatinine level. CT scan of the abdomen and pelvis without contrast p er stone protocol showed bilateral hydronephrosis and prominent distention of the urinary bladder. Meagan lambert was found to have hyponatremia. Sodium level was 126 on admission. The patient denies pyuria , hematuria. He received antibiotics for UTI. Review of Systems: Denies chest pain, palpitation. The patient is feeling better today. Physical Examination: Lungs: Diminished breath sounds at bases. Heart: S1, S2. Abdomen: Soft. Extremities: No edema. Laboratory Data: Platelet count 212,000, BUN 22, creatinine 1.73, glucose 118, sodium 126. Impression And Plan: 1.Acute on chronic kidney injury secondary to obstructive uropathy, bladder outlet obstruction from benign prostatic hyperplasia. Serum creatinine level is gradually improving. Continue to monitor el ectrolytes. Urine chemistry showed non-renal pattern. Continue Macedo catheter. IV fluids were star issa with lactated Ringer drip with 75 cc/hour. The patient will continue p.o. fluids for hydration. Monitor postobstructive diuresis and adjust fluids as needed. Monitor electrolytes. Patient may ne ed replacement with potassium. 2.Hypocalcemia, mild, corrected. Serum calcium was within normal limits. 3.Hypophosphatemia, phosphorus repletion according to lab results. 4.Benign prostatic hyperplasia. Patient is on Flomax and Proscar. The patient will have urology ev aluation during this hospitalization. Monitor culture for possible urinary tract infection. Blood c ultures were ordered and urine cultures are pending. 5.Hyponatremia, improved. Patient developed hyponatremia in setting of bladder outlet obstruction a nd renal failure. Continue IV fluids. Adjust IV fluids according to lab results. EB/MODL Voice ID: [id number] Report ID: [id number]
[2023-09-24 04:06] LABS: Magnesium 1.7 mg/dL (1.6-2.4); Potassium 3.4 mEq/L (3.5-5.1)
[2023-09-24] MEDS ORDERED: POTASSIUM CL SA 10 MEQ TAB PO ONE (05:41)
[2023-09-24] MEDS ORDERED: MAGNESIUM SULFATE 1 gm IVPB 1 GM/100 ML BAG IV ONE (05:41)
[2023-09-24 05:50] LABS: Phosphorus 2.6 mg/dL (2.5-4.9)
[2023-09-24] MEDS: PANTOPRAZOLE 40 MG INJ IVP SCH (08:27)
[2023-09-24] MEDS: FINASTERIDE 5 MG TAB PO SCH (08:28)
[2023-09-24] MEDS: TAMSULOSIN 0.4 MG SR CAP PO SCH (08:28)
[2023-09-24] MEDS ORDERED: Mupirocin NASAL 2 APPL/1 GM TUBE NAS SCH (10:00)
[2023-09-24 12:08] VITALS: BP 127/60; TEMP 97.1
--- NOTE | 2023-09-24 13:10 | P.DS ---
Admission Date: 09/21/23 Discharge Date: 09/24/23 Disposition: ROUTINE DISCHARGE Discharge Condition: FAIR Reason for Admission: fever, unable to urinate Brief History of Present Illness: 63-year-old male with a history of BPH presented to the emergency room with unable to urinate. Family reported patient has had an indwelling catheter since May and was seeing urologist weekly. Family reported patient urologist Dr. Mark Starks recently discontinued Chun catheter. Since catheter removal, the patient reported unable to empty bladder, developed fever, nausea, vomiting. Symptoms progressively worsened. Patient reported black tarry stools 3-4 a day x3 days. No reported history of recent alcohol use, gastric ulcers, reported ibuprofen was given 2 days ago. No reported use of anticoagulation. Remote history of alcohol use greater than 30 years. No history of chronic liver disease. No reported shortness of breath, chest pain, abdominal pain, flank pain, edema, dizziness. Laboratory evaluation sodium 126, acute kidney injury BUN 22 creatinine 1.75. UA showed leukoesterase greater than 500 WBCs greater than 52+ hematuria, SARS, influenza, RSV, negative CT of the abdomen pelvis IMPRESSION: Prominent distention urinary bladder with mild bilateral hydronephrosis likely indicating bladder outlet obstruction, presumably related to significantly enlarged prostate gland. Chest x-ray no acute intrathoracic process. Heart normal size. Patient was admitted for further management. Hospital Course: Diagnosis Bilateral hydronephrosis secondary to bladder outlet obstruction BPH with chronic obstruction, failed voiding trial x2 (Chun since May 2023) Acute Cystitis E. Coli bacteremia EMELY secondary to bladder outlet obstruction Hyponatremia Hypoalbuminemia Hypocalcemia Constipation Bilateral hydronephrosis secondary to bladder outlet obstruction BPH with chronic obstruction, failed voiding trial x2 (Chun since May 2023) Acute Cystitis GNR bacteremia Patient with indwelling catheter reportedly since may. Follows up with urology - Dr. Mark Starks weekly. reports attempted voiding trial x2 (~1 month apart). Most recent was Sunday 09/16 Chun placed in ED 09/[address] abdomen (09/21): Prominent distention urinary bladder with mild bilateral hydronephrosis likely indicating bladder outlet obstruction Blood cx (09/21): E. coli Urine cx (09/21): E. coli Patient was treated with cefepime and levaquin (09/22) recent hospitalizations, prior enterococcus Patient seen by infectious disease who recommended oral Levaquin based on culture sensitivity Patient is currently asymptomatic, he is ambulatory and tolerating diet He is discharged to complete 14 days of oral Levaquin. PRN analgesics/antiemetics Patient BPH medications-tamsulosin and finasteride were continued during the hospital stay. EMELY secondary to bladder outlet obstruction Hyponatremia, improving Hypoalbuminemia Hypocalcemia Nephrology managed EMELY. Both EMELY and hyponatremia resolved with IV fluid. Reported Dark brown stool constipation 3-4 episodes of dark stools a day, for ~3days per patient - states only smears, not much monitor H&H. Transfuse for hgb < 7. possibility of a stercoral ulcer - ~1 week since had BM, and bladder significantly distended not allowing for stool to pass reports 2 brown BM 09/23. Denies black stool. No obvious bleeds seen. Follow-up with GI as outpatient. Vital Signs/Physical Exam: Temp Pulse Resp BP Pulse Ox 97.1 F 58 16 127/60 98 09/24/23 12:00 09/24/23 12:00 09/24/23 12:00 09/24/23 12:00 09/24/23 12:00 General: Alert, In no apparent distress, Oriented x3 HEENT: Mucous membr. moist/pink Neck: Supple, JVD not distended Respiratory: Clear to auscultation bilaterally, Normal air movement Cardiovascular: No edema, Regular rate/rhythm, Normal S1 S2 Gastrointestinal: Normal bowel sounds, Soft and benign, Non-distended Musculoskeletal: No swelling Integumentary: No rashes, No cyanosis Neurological: Normal strength at 5/5 x4 extr Laboratory Data at Discharge: WBC 6.10 thou/uL (4.3-10.9) 09/23/23 05:28 Hgb 12.1 g/dL (13.6-17.9) L 09/23/23 05:28 Hct 35.2 % (39.6-49.0) L 09/23/23 05:28 Plt Count 193 thou/uL (152-406) 09/23/23 05:28 PT 13.2 SECONDS (9.5-12.5) H 09/21/23 16:25 INR 1.20 09/21/23 16:25 APTT 33.0 SECONDS (24.3-36.9) 09/21/23 16:25 Sodium 137 mEq/L (136-145) 09/24/23 03:21 Potassium 3.4 mEq/L (3.5-5.1) L 09/24/23 03:21 BUN 10 mg/dL (7-18) 09/24/23 03:21 Creatinine 1.16 mg/dL (0.70-1.30) 09/24/23 03:21 Glucose 113 mg/dL (74-106) H 09/24/23 03:21 Phosphorus 2.6 mg/dL (2.5-4.9) 09/24/23 03:21 Magnesium 1.7 mg/dL (1.6-2.4) 09/24/23 03:21 Total Bilirubin 1.0 mg/dL (0.2-1.0) 09/21/23 16:25 AST 16 U/L (15-37) 09/21/23 16:25 ALT 25 U/L (16-61) 09/21/23 16:25 Alkaline Phosphatase 114 U/L (45-117) 09/21/23 16:25 Home Medications: Finasteride [Proscar*] 5 mg PO DAILY 09/21/23 Tamsulosin [Flomax*] 0.4 mg PO DAILY 09/21/23 levoFLOXacin [Levaquin] 750 mg PO DAILY #14 tab 09/24/23 New Medications: levoFLOXacin [Levaquin] 750 mg PO DAILY #14 tab Diet: AHA Activity: Ad darling Followup: NONE,NONE [Primary Care Provider] - Ant Fernandez [ACTIVE - CAN ADMIT] - 1-2 Weeks (Bladder outlet obstruction with indwelling chun) Time spent managing pt's care (in minutes): 35
--- NOTE | 2023-09-24 14:43 | P.PN ---
Date of Service: 09/24/23 Chief Complaint: fever, unable to urinate Subjective: Improving. Patient seen and examined at bedside. Denies any new or worsening complaints at this time. Discussed plan of care with patient and family at bedside. Physical Examination Temp Pulse Resp BP Pulse Ox 97.1 F 58 16 127/60 98 09/24/23 12:00 09/24/23 12:00 09/24/23 12:00 09/24/23 12:00 09/24/23 12:00 General: Alert, In no apparent distress, Oriented x3 HEENT: Atraumatic, Normocephalic. Neck: Supple Respiratory: Clear to auscultation bilaterally, Normal air movement Cardiovascular: No edema, Regular rate/rhythm Gastrointestinal: Normal bowel sounds. Soft. Non-tender. Non-distended. Integumentary: No rashes Urinary: Macedo catheter Laboratory data -Reviewed Microbiology data -Reviewed Imagings Data: -Reviewed Medications List: Reviewed Assessment and Plan Problem list Gram-negative bacteremia secondary to complicated urinary tract infection Bilateral hydronephrosis Benign prostatic hypertrophy Acute kidney injury Gram-negative bacteremia secondary to complicated urinary tract infection - Indwelling Macedo catheter since May. -Blood cultures 09/21: Escherichia coli -Urine culture 09/21: Gram-negative rods -CT abdomen pelvis w contrast 09/21: " Prominent distention urinary bladder with mild bilateral hydronephrosis likely indicating bladder outlet obstruction, presumably related to significantly enlarged prostate gland." - Currently on Levaquin IV (stared 09/22) - Afebrile 24 hours - No leukocytosis. Recommendations - Bacteremia secondary to complicated UTI: cultures growing Escherichia coli. Continue antibiotic therapy for 14 days (09/22-10/05) E.coli sensitivite to levofloxacin. Switch to PO levofloxacin upon discharge to complete remainder of course. - Monitor WBC and fever trends - Patient to follow up with urologist in 2 weeks. Case discussed with Kyle Cifuentes
--- NOTE | 2023-09-24 18:10 | PN ---
Date of Progress Note: 09/24/2023 Subjective: The patient was admitted with acute kidney injury secondary to obstructive uropathy. Th e patient is status post Macedo. Kidney function has been normalized. Objective: Vital Signs: Blood pressure 127/60, pulse of 58, afebrile. Chest: Clear to auscultation. Heart: S1, S2. Regular. Abdomen: Soft, nontender. Extremities: No edema. Neurologic: Alert. No focality. Laboratory Data: Hemoglobin 12.1, sodium 137, potassium 3.4, bicarb 24, BUN 10, creatinine 1.1, GFR of 71, calcium 7.9, phosphorus 2.6, magnesium 1.7. Current Medications: The patient on, it includes: 1.Levaquin. 2.Flomax. 3.LR. 4.Pantoprazole. 5.Magnesium sulfate. 6.Finasteride. Assessment And Plan: 1.Acute kidney injury secondary to obstructive uropathy, recovered, resolved. Continue Macedo/self c atheter. 2.Hypokalemia, hypophosphatemia. We will supplement. 3.Benign prostate hypertrophy with obstructive uropathy. Follow up with Urology. Continue Flomax a nd finasteride. Follow up as outpatient. The patient cleared from the Renal standpoint for discharge planning. SHY/CHANELL Voice ID: [id number] Report ID: [id number]
== END 2023-09-24 15:17 | disposition home or self-care (01) | DRG 690 ==
LOC: ER 15:39 → ERHOLD 19:39 → 2ND 20:24
PROVIDERS: ADMIT Hospitalist; ATTEND Internal Medicine
DX: N13.6 Pyonephrosis (principal); E87.1 Hypo-osmolality and hyponatremia; N13.8 Other obstructive and reflux uropathy; R78.81 Bacteremia; N17.9 Acute kidney failure, unspecified; E83.51 Hypocalcemia; E88.09 Other disorders of plasma-protein metabolism, not elsewhere classified; K59.00 Constipation, unspecified; N40.1 Benign prostatic hyperplasia with lower urinary tract symptoms; B96.20 Unspecified Escherichia coli [E. coli] as the cause of diseases classified elsewhere; F17.210 Nicotine dependence, cigarettes, uncomplicated; R33.8 Other retention of urine; R31.9 Hematuria, unspecified; Z11.52 Encounter for screening for COVID-19; Z79.899 Other long term (current) drug therapy
CPT/HCPCS: 0241U; 36415; 71045; 74177; 80048; 80053; 80069; 81001; 82306; 82550; 82570; 83605; 83735; 83880; 83935; 83970; 84100; 84132; 84156; 84300; 85014; 85018; 85025; 85610; 85730; 87040; 87077; 87086; 87088; 87186; 87205; 93005; 96361; 96374; 99285; C9113; J0692; J3475; J3480; J7030; J7120; Q9967